=== PATIENT | male | born 2000 | race Two or more races ===

== ENCOUNTER 2021-11-23 09:58 | Emergency (ER) | payer OTHER ==
[2021-11-23 10:26] VITALS: BP 111/73
[2021-11-23] MEDS ORDERED: TETRACAINE HCL 0.5% OPTH(EYE) SOLN 4ML EACHEYE ONE (11:30)
[2021-11-23] MEDS ORDERED: FLUORESCEIN SOD OPTH TEST STRIP OP ONE (11:30)
[2021-11-23] MEDS ORDERED: TOBR0.3S OP (11:45)
== END 2021-11-23 12:10 | disposition home or self-care (01) ==
LOC: ER 09:58
DX: T15.01XA Foreign body in cornea, right eye, initial encounter (principal); X58.XXXA Exposure to other specified factors, initial encounter; Y93.89 Activity, other specified; Y92.89 Other specified places as the place of occurrence of the external cause; Y99.8 Other external cause status
CPT/HCPCS: 65222